=== PATIENT | male | born 1995 | race Caucasian/White ===

== ENCOUNTER 2017-11-24 14:44 | Emergency (ER) | payer SELFPAY, OTHER ==
[2017-11-24] MEDS: IBUPROFEN 600 MG TAB PO (15:24)
== END 2017-11-24 18:32 | disposition home or self-care (01) ==
LOC: FTE 14:44
DX: R07.89 Other chest pain (principal); M54.2 Cervicalgia
CPT/HCPCS: 71045; 72040; 93005; 99284-25